=== PATIENT | male | born 2005 | race African-American/Black ===

== ENCOUNTER 2024-05-06 23:22 | Emergency (ER) | payer OTHER, SELFPAY ==
[2024-05-07 00:53] LABS: Bilirubin Neg (Negative); Blood, Urine Negative (Negative); Clarity Clear (Clear); Glucose, Urine (Dipstick) Normal (Negative); Ketone, Urine Negative (Negative); Leukocyte Negative (Negative); Nitrite Negative (Negative); Protein, Urine (Dipstick) 15 mg/dl (Neg-Trace); Specific Gravity, Urine 1.015 (1.005-1.030); Urobilinogen Normal mg/dL (Less than 2); pH, Urine 6.5 (5.0-9.0)
[2024-05-07 00:59] LABS: #Basophils 0.02 10x3/uL (0.0-0.2); #Eosinophils 0.03 10x3/uL (0.0-0.5); #Neutrophils 5.44 10x3/uL (1.5-8.4); %Basophils 0.3 % (0.0-2.0); %Eosinophils 0.4 % (0.0-6.0); %Monocytes 5.5 % (0.0-10.0); %Neutrophils 75.1 % (40.0-75.0); Hematocrit 41.7 % (38.8-50.0); Hemoglobin 13.5 g/dL (13.5-17.5); Mean Corpuscular HGB CONC 32.4 g/dL (32.0-36.0); Mean Corpuscular Hemoglobin 27.6 pg (27.0-33.0); Mean Corpuscular Volume 85.3 fL (81.2-95.1); Mean Platelet Volume 10.4 fL (7.4-10.4); Platelet Count 261 10x3/uL (150-450); RBC Distribution Width 14.1 % (11.5-14.5); Red Blood Cell (RBC) Count 4.89 10x6/uL (4.32-5.72); White Blood Cell (WBC) Count 7.2 10x3/uL (3.5-10.5)
[2024-05-07 01:03] LABS: Amphetamine Not Detected (NotDetected); Barbiturates Screen Not Detected (NotDetected); Benzodiazepine Screen Not Detected (NotDetected); Cocaine Metabolite Screen Not Detected (NotDetected); Methadone Not Detected (NotDetected); Methamphetamine Not Detected (NotDetected); Opiate Screen Not Detected (NotDetected); Oxycodone Screen Not Detected (NotDetected); Phencyclidine (PCP) Not Detected (NotDetected); THC/Cannabinoid Screen Detected (NotDetected); Tricyclic Screen Not Detected (NotDetected)
[2024-05-07 01:13] LABS: Acetaminophen Less than 10 mcg/mL (Less than 10); Alcohol Less than 10.0 mg/dL (Less than 10); Salicylate Less than 8.0 mg/dL (Less than 8.0)
[2024-05-07 01:15] LABS: ALT (SGPT) 12 U/L (8-55); AST (SGOT) 21 U/L (10-45); Albumin 4.1 g/dL (3.5-5.0); Alcohol Less than 10.0 mg/dL (Less than 10); Alkaline Phosphatase 54 U/L (50-130); Anion Gap 15 mmol/L (10-20); BUN (Urea Nitrogen) 17 mg/dL (8.4-21.0); Bilirubin, Total 0.5 mg/dL (0.2-1.2); Calc. Creatinine Clearance 0 mL/min (70-130); Calcium 9.4 mg/dL (7.8-10.44); Carbon Dioxide 25 mmol/L (22-29); Chloride 105 mmol/L (98-107); Estimated GFR 107; Globulin 2.8 g/dL (2.4-3.5); Glucose 108 mg/dL (70-105); Potassium 3.6 mmol/L (3.5-5.1); Protein, Total 6.9 g/dL (6.0-8.3); Sodium 141 mmol/L (136-145)
[2024-05-07 01:24] LABS: Bacteria/HPF Rare-Few HPF (None Seen); CAUTI Indications for Culture Alt mental st,lethar; RBC/HPF 0-3 HPF (0-3); Squamous Epithelial None Seen HPF (0-3); WBC/HPF 0-3 HPF (0-3)
[2024-05-07 01:25] LABS: Mucous/LPF 1+ LPF (<2+)
[2024-05-07 01:26] LABS: Urine Culture Reflex No No
== END 2024-05-07 15:53 ==
LOC: CSHERS 23:22 → EEVIPCON 23:22 → CSHERS 05-07 15:53
DX: R45.851 Suicidal ideations (principal)
CPT/HCPCS: 36416; 80053; 80306; 80307; 81001; 85025; 99285